=== PATIENT | male | born 1970 | race Caucasian/White ===

== ENCOUNTER → 2018-12-25 18:28 | Outpatient (CLI) | payer OTHER, SELFPAY ==
--- NOTE | 2018-12-25 18:45 | RAD_ITS ---
STUDY: X-RAY - LEFT TIBIA AND FIBULA REASON FOR EXAM: Distal fibular and malleoli pain status post fall 5 days ago. TECHNIQUE: 2 view(s) of the tibia and fibula were obtained. COMPARISON: None. FINDINGS: Normal visualized tibia. Normal visualized fibula. The soft tissue structures are unremarkable. RAD/Tibia & Fibula 2 Views IMPRESSION: Unremarkable x-ray examination of the left tibia and fibula. Electronically Signed: Percy Bedoya MD at 10:39 EST Tel , Service support ,
== END ==
PROVIDERS: Family Provider Family Medicine; PCP Family Medicine; Visit Provider Family Medicine
DX: M79.662 Pain in left lower leg (principal)
CPT/HCPCS: 73590

== ENCOUNTER → 2020-01-08 | Outpatient (CLI) | payer OTHER, SELFPAY ==
--- NOTE | 2020-01-08 16:21 | RAD_ITS ---
HISTORY: left knee locks up for the past few monthspt in a leg brace since in school due to left leg being shorter than the right ADDITIONAL HISTORY: None provided. TECHNIQUE: Left knee 4 views Number of images including paperwork: 4 COMPARISON: Left tibia-fibula 12/25/2018 FINDINGS: Artifact of overlying material. BONES: No acute fracture. JOINTS: No subluxation. Moderate medial compartment joint space narrowing. SOFT TISSUES: No distinct foreign body. RAD/Knee 4 or More Views IMPRESSION: Degenerative changes without acute osseous abnormality. at 0303 Reported and signed by: Rox Reyna MD Electronically Signed: Rox Reyna MD at 3:03 EST Tel , Service support ,
--- NOTE | 2020-01-08 16:21 | RAD_ITS ---
HISTORY: left ankle locks up for the past few monthspt in a leg brace since in school due to left leg being shorter than the right ADDITIONAL HISTORY: None provided. TECHNIQUE: Left ankle 3 views Number of images including paperwork: 3 COMPARISON: Left tibia-fibula 12/25/2018 FINDINGS: BONES: No acute fracture. Mineralization appears decreased. Partially visualized but has appearance suggestive of pes cavus. JOINTS: No subluxation. SOFT TISSUES: No distinct foreign body. RAD/Ankle min 3 Views IMPRESSION: No acute osseous abnormality. at 0301 Reported and signed by: Rox Reyna MD Electronically Signed: Rox Reyna MD at 3:01 EST Tel , Service support ,
== END | disposition home or self-care (01) ==
LOC: MTRAD 16:19
PROVIDERS: PCP Family Medicine; Referring Provider Family Medicine; Visit Provider Family Medicine
DX: M25.562 Pain in left knee (principal); M25.572 Pain in left ankle and joints of left foot
CPT/HCPCS: 73564; 73610

== ENCOUNTER → 2020-02-19 | Outpatient (CLI) | payer OTHER, SELFPAY ==
[2020-02-19 12:41] LABS: Anion Gap 5 (5-15); BUN 15 mg/dL (7-18); BUN/Creat Ratio 15.7 RATIO (10-20); Calcium,Total 8.9 mg/dL (8.5-10.1); Chloride 104 mmol/L (98-107); Creatinine, Serum 0.95 mg/dL (0.70-1.30); EST Glomerular Filtration Rate 89 mL/min (>60); Est Glom Filt Rate - Afr Amer 108 mL/min (>60); Glucose 88 mg/dL (74-106); Potassium 4.2 mmol/L (3.5-5.1); Sodium Level 138 mmol/L (136-145)
== END | disposition home or self-care (01) ==
LOC: MTLAB 09:22
PROVIDERS: PCP Family Medicine; Referring Provider Family Medicine; Visit Provider Family Medicine
DX: M19.90 Unspecified osteoarthritis, unspecified site (principal)
CPT/HCPCS: 36415; 80048

== ENCOUNTER → 2023-09-13 | Outpatient (CLI) | payer OTHER, SELFPAY ==
--- NOTE | 2023-09-13 15:44 | RAD_ITS ---
INDICATION: PAIN EXAMINATION/TECHNIQUE: X-RAY - LEFT XR Foot 4 VIEWS COMPARISON: FINDINGS: SOFT TISSUES: No soft tissue swelling or gas. No radiopaque foreign body. BONES/JOINTS: There is a fracture of the proximal phalanx of the first toe.. Normal alignment. Preservation of the joint space.. No sclerotic or destructive changes observed. RAD/Foot min 3 Views IMPRESSION: Fracture of the proximal phalanx of the first toe. Electronically Signed: Alexandr Carrizales DO at 23:59 EDT ,
== END | disposition home or self-care (01) ==
LOC: MTRAD 15:42
PROVIDERS: PCP Family Medicine; Referring Provider Podiatrist; Visit Provider Podiatrist
DX: S90.32XA Contusion of left foot, initial encounter (principal); X58.XXXA Exposure to other specified factors, initial encounter
CPT/HCPCS: 73630